=== PATIENT | male | born 1990 | race Two or more races ===

== ENCOUNTER → 2019-03-17 | Outpatient (CLI) | payer OTHER ==
--- NOTE | 2019-03-17 18:10 | REP ---
Five views right ribs and chest: 03/17/2019. Indication: Right chest trauma. Findings: There is no evidence of acute rib fracture. There is no evidence of lung contusion. There is no pleural effusion or pneumothorax. No erosive osseous lesions of the visualized bones are present. Impression: No acute rib fracture. Clear lungs. Electronically Signed by Darin Gonzalez DO 03/17/2019 06:02 P
== END ==
LOC: M LRY 17:42
PROVIDERS: ATTEND Nurse Practitioner Family
DX: R07.81 Pleurodynia (principal)
CPT/HCPCS: 71101; 96372; G0463; J1885